=== PATIENT | male | born 1995 | race Caucasian/White ===

== ENCOUNTER 2021-02-26 11:06 | Emergency (ER) | payer SELFPAY ==
[2021-02-26 11:10] VITALS: BP 140/88; PULSE 115; RESP 15; TEMP 37.2; O2SAT 100; BMI 24.3
[2021-02-26 11:11] VITALS: PULSE 114; RESP 23; O2SAT 100
--- NOTE | 2021-02-26 11:17 | PC.NURSE ---
Patient prior to event had not eaten any food or drank any water. 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 Had several episodes of light headedness prior to event, employer walked patient to vehicle where episode of rigidity and shaking with unresponsiveness. By the time EMS arrived patient appeared back to baseline.
--- NOTE | 2021-02-26 11:29 | ED.SEIZURE ---
HPI - Seizure General Chief Complaint: Seizure Stated Complaint: seizure Time Seen by Provider: 02/26/21 11:16 Source: patient Mode of arrival: EMS Limitations: no limitations History of Present Illness HPI Narrative: Patient brought in by ambulance. Complained of 4 minute witnessed generalized tonic-clonic seizure. EMS blood sugar 71. Patient was working with his boss. He states his eyes were fluttering and had dizziness. No chest pain. No palpitations. Denies any drug use. No history of daily alcohol use/abuse. Patient states that he usually does not have very good nutritional intake. A very little yesterday. 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 No breakfast. Had 2 large in energy drinks, 1 was 24 oz the other 1 was 20 oz. patient states he does drink daily every morning energy drinks. His boss is on the phone while I am taking history. Patient had complaints as he described, walked towards the [employer] truck and set down a few times. Got into the truck and had a generalized symmetric tonic clonic seizure with foaming at the mouth. Duration 4 minutes. Patient awoke and immediately recognized his boss and was oriented very quickly. No injury. No recent illness fever chills cough cold congestion. No family history of seizures. No history of brain tumors. Is on no prescribed medications. No benzodiazepines were given. Patient is at baseline at this time Related Data Previous Rx's Medication Instructions Recorded amoxicillin 400 mg/5 mL oral 10 ml PO BID #200 ml 09/07/17 suspension Allergies Allergy/AdvReac Type Severity Reaction Status Date / Time bee venom protein (honey bee) Allergy Unknown Unverified 10/12/17 11:50 [BEE VENOM PROTEIN (HONEY BEE)] Review of Systems Review of Systems Narrative: GENERAL: Denies chills, fatigue, malaise, fever, sweats. HEENT: Denies sinus pain, ear pain, sore throat RESPIRATORY: Denies dyspnea, cough CARDIOVASCULAR: Denies chest pain, palpitations GASTROINTESTINAL: Denies nausea, vomiting, abdominal pain : Denies dysuria, frequency, hematuria MUSCULOSKELETAL: denies muscle or bony pain SKIN: Denies rash, skin lesions NEUROLOGIC: Denies weakness, numbness, complains dizziness/seizure ROS Unobtainable: All systems reviewed & are unremarkable except as noted in HPI and below Patient History Social History Smoking Status: Current every day smoker Smoking Status: Current every day smoker alcohol intake frequency: a few times a week Substance Use Type: does not use Exam Narrative Exam Narrative: GENERAL: in no distress, not toxic not dyspneic HEAD: Normocephalic. EYES: Pupils equal round No scleral icterus. No injection no discharge ENT: Mucous membranes moist. NECK: Trachea midline. CARDIOVASCULAR: Regular rate and rhythm without murmurs RESPIRATORY: Clear to auscultation. Breath sounds equal bilaterally. No wheezes, rales, or rhonchi. GASTROINTESTINAL: Abdomen soft, non-tender EXTREMITIES: No gross deformities. BACK: No flank tenderness. NEURO: AOx4. Clear speech no facial droop light touch intact to bilateral face hands and legs. Strong equal informatics spec. SKIN: Warm and dry PSYCH: Not anxious, is cooperative Initial Vital Signs Initial Vital Signs: Vital Signs Temperature 98.9 F 02/26/21 11:10 Pulse Rate 115 H 02/26/21 11:10 Respiratory Rate 15 02/26/21 11:10 Blood Pressure 140/88 02/26/21 11:10 Pulse Oximetry 100 02/26/21 11:10 Course Course Course Narrative: No new issues during course of stay. No seizure Orders Ordered: ED Orders 02/26/21 11:29 Comprehensive Metabolic Panel Stat Ethanol (ETOH) Stat 02/26/21 11:30 Complete Blood Count AUTO DIFF Stat Magnesium Stat EKG-12 Lead Stat 02/26/21 11:39 CT head/brain wo con Stat 02/26/21 11:47 Urinalysis Screen (Dip Only) Stat Urine Drug Screen, Rapid Stat Reevaluation(s) Reevaluation #1: Remains awake alert oriented x4. No seizures during course of stay. Time: 12:29 Reevaluation #2: Reviewed results with patient, understands no driving or operating machinery until cleared by provider/neurologist. Vital Signs Vital signs: Vital Signs - 8 hr 02/26/21 11:10 02/26/21 11:11 02/26/21 11:30 Temperature 98.9 F Pulse Rate 115 H 114 H 108 H Respiratory Rate 15 23 Blood Pressure 140/88 124/58 L Pulse Oximetry 100 100 99 02/26/21 12:08 02/26/21 12:31 Temperature Pulse Rate 90 95 H Respiratory Rate 17 18 Blood Pressure 127/73 142/83 H Pulse Oximetry 100 100 MDM - Seizure Differential Diagnosis Differential diagnosis: Likely febrile convulsion, generalized seizure, new onset seizure and epileptic seizure Lab Data Result diagrams: 02/26/21 12:21 02/26/21 12:21 Labs: Lab Results 02/26/21 02/26/21 02/26/21 Range/Units 11:47 11:47 12:21 WBC (4.5-11.0) X10^3/uL RBC (4.5-5.9) X10^6/uL Hgb (13.5-17.5) g/dL Hct (41-53) % MCV (80-100) fL MCH (26-34) PG MCHC (30-36) % RDW (11.6-14.8) % Plt Count (150-400) X10^3/uL Neut % (Auto) (50-75) % Lymph % (Auto) (25-40) % [place] % (Auto) (3-14) % Eos % (Auto) (2-4) % Baso % (Auto) (0-2) % Neut # (Auto) (9355-5013) /uL Lymph # (Auto) (5636-5755) /uL [place] # (Auto) (0-900) /uL Eos # (Auto) (0-450) /uL Baso # (Auto) (0-100) /uL Sodium 135 L (137-145) mmol/L Potassium 3.3 L (3.4-5.1) mmol/L Chloride 104 (98-107) mmol/L Carbon Dioxide 23 (22-32) mmol/L BUN 6 L (9-20) mg/dL Creatinine 0.90 (0.66-1.25) mg/dL Estimated GFR > 60.0 (>60) mL/min BUN/Creatinine Ratio 6.7 (6-22) Glucose 82 (70-100) mg/dL Calcium 8.9 (8.4-10.2) mg/dL Magnesium (1.6-2.3) mg/dL Total Bilirubin 0.5 (0.2-1.3) mg/dL AST 34 (17-59) IU/L ALT 23 (<50) IU/L Alkaline Phosphatase 74 (38-126) U/L Total Protein 7.2 (6.3-8.2) g/dL Albumin 4.2 (3.5-5.0) g/dL Globulin 3.0 (1.7-4.1) g/dL Albumin/Globulin Ratio 1.4 (1.0-2.8) Urine Color Yellow Urine Appearance Clear Urine pH 6.0 (4.5-8.0) Ur Specific [place] 1.020 (1.000-1.035) Urine Protein Trace H (Negative) Urine Glucose (UA) Negative (Negative) g/dL Urine Ketones Negative (NEGATIVE) Urine Occult Blood Negative (Negative) Urine Nitrate Negative (Negative) Urine Bilirubin Negative (NEGATIVE) Urine Urobilinogen 0.2 (0.2) E.U./dL Ur Leukocyte Esterase Negative (NEGATIVE) U Opiates 300ng/mL cut Negative (Negative) Ur Oxycodone Screen Negative (Negative) Urine Methadone Screen Negative (Negative) Ur Barbiturates Screen Negative (Negative) U Tricyclic Antidepress Negative (Negative) Ur Phencyclidine Scrn Negative (Negative) Ur Amphetamines Screen Negative (Negative) U Methamphetamines Scrn Negative (Negative) Ur MDMA Scrn (Ecstasy) Negative (Negative) U Benzodiazepines Scrn Negative (Negative) Urine Cocaine Screen Negative (Negative) U Marijuana (THC) Screen Negative (Negative) Ethyl Alcohol < 10 ( - 10) mg/dL 02/26/21 02/26/21 Range/Units 12:21 12:21 WBC 9.2 (4.5-11.0) X10^3/uL RBC 4.87 (4.5-5.9) X10^6/uL Hgb 15.3 (13.5-17.5) g/dL Hct 45.2 (41-53) % MCV 92.8 (80-100) fL MCH 31.5 (26-34) PG MCHC 34.0 (30-36) % RDW 13.5 (11.6-14.8) % Plt Count 196 (150-400) X10^3/uL Neut % (Auto) 80.9 H (50-75) % Lymph % (Auto) 11.0 L (25-40) % [place] % (Auto) 7.6 (3-14) % Eos % (Auto) 0.2 L (2-4) % Baso % (Auto) 0.3 (0-2) % Neut # (Auto) 7500 H (2227-5389) /uL Lymph # (Auto) 1000 L (0048-6383) /uL [place] # (Auto) 700 (0-900) /uL Eos # (Auto) 0 (0-450) /uL Baso # (Auto) 0 (0-100) /uL Sodium (137-145) mmol/L Potassium (3.4-5.1) mmol/L Chloride (98-107) mmol/L Carbon Dioxide (22-32) mmol/L BUN (9-20) mg/dL Creatinine (0.66-1.25) mg/dL Estimated GFR (>60) mL/min BUN/Creatinine Ratio (6-22) Glucose (70-100) mg/dL Calcium (8.4-10.2) mg/dL Magnesium 2.2 (1.6-2.3) mg/dL Total Bilirubin (0.2-1.3) mg/dL AST (17-59) IU/L ALT (<50) IU/L Alkaline Phosphatase (38-126) U/L Total Protein (6.3-8.2) g/dL Albumin (3.5-5.0) g/dL Globulin (1.7-4.1) g/dL Albumin/Globulin Ratio (1.0-2.8) Urine Color Urine Appearance Urine pH (4.5-8.0) Ur Specific [place] (1.000-1.035) Urine Protein (Negative) Urine Glucose (UA) (Negative) g/dL Urine Ketones (NEGATIVE) Urine Occult Blood (Negative) Urine Nitrate (Negative) Urine Bilirubin (NEGATIVE) Urine Urobilinogen (0.2) E.U./dL Ur Leukocyte Esterase (NEGATIVE) U Opiates 300ng/mL cut (Negative) Ur Oxycodone Screen (Negative) Urine Methadone Screen (Negative) Ur Barbiturates Screen (Negative) U Tricyclic Antidepress (Negative) Ur Phencyclidine Scrn (Negative) Ur Amphetamines Screen (Negative) U Methamphetamines Scrn (Negative) Ur MDMA Scrn (Ecstasy) (Negative) U Benzodiazepines Scrn (Negative) Urine Cocaine Screen (Negative) U Marijuana (THC) Screen (Negative) Ethyl Alcohol ( - 10) mg/dL Point of Care Testing Glucose POC 71 Urine Dip Bedside Urine Glucose Negative Bedside Urine Bilirubin - Negative Bedside Urine Ketone - Negative Urine Specific [place] 1.025 Bedside Urine Occult Blood - Negative Bedside Urine pH 6 Bedside Urine Protein - Negative Bedside Urine Urobilinogen - Negative Bedside Urine Nitrite - Negative Bedside Urine Leukocytes - Negative Esterase Imaging Data CT scan - head: Radiologist's Impression: [address] [id number] Scan ReportSigned Patient: Dimitri ParekhMR#: [id number]: 1995Acct:[id number]/Sex: 25 / MDate of Service: 02/26/21Loc: EDAccession Number: [id number] Procedure: CT head/brain wo con Ordering Provider: Carlton Edwards MD PROCEDURE: CT HEAD/BRAIN WO CON INDICATIONS: Seizure TECHNIQUE: Noncontrast 4.5 mm thick angled axial sections acquired from the foramen magnum to the vertex, with coronal and sagittal reformats. For radiation dose reduction, the following was used: automated exposure control, adjustment of mA and/or kV according to patient size. COMPARISON: None. FINDINGS: Image quality: Excellent. CSF spaces: Basal cisterns are patent. No extra-axial fluid collections. Ventricles are normal in size and shape. Brain: No midline shift. No intracranial masses or hemorrhage. Smith-white matter interface is normal. Skull and face: Calvarium and visualized facial bones are intact, without suspicious lesions. Sinuses: Visualized sinuses and mastoids are clear. IMPRESSION: No CT evidence of acute intracranial pathology. Dictated by: Damien Vieyra M.D. on 02/26/2021 at 11:59 Approved by: Damien Vieyra M.D. on 02/26/2021 at 12:00 ECG Data Interpretation: Sinus tachycardia, rate 111, no ST elevation, otherwise normal EKG MDM Narrative Medical decision making narrative: Appropriate for discharge home and follow-up with primary care for re-evaluation. Also needs clearance by provider or neurologist before driving or operating machinery. Patient understands at least 3 months seizure-free. Return precautions reviewed with him. Appropriate no seizure medications at this time. Needs neurology follow-up. Giving patient referral line to detain primary care to get referral to Neurology. We do not have Neurology on-call. Discharge Plan Departure Patient Disposition: Home Clinical Impression: New onset seizure Instructions: DI for Seizure Disorder -- Adult Activity Restrictions/Additional Instructions: No driving or operating machinery until seen by provider and cleared by neurologist for evaluation of today's seizure event. This is usually minimum of 3 months but need to be seen by neurologist. No energy drinks would be advisable. Return if worse if any questions or concerns. Call provided referral line to teen family doctor and referral to Neurology Prescriptions: No Action amoxicillin 400 MG/5 ML suspension for reconstitution 10 ml PO BID Qty: 200 RF: 0 Referrals: [facility] [Outside]
[2021-02-26 11:30] VITALS: BP 124/58; PULSE 108; O2SAT 99
--- NOTE | 2021-02-26 11:39 | DI.CT.S_ITS ---
PROCEDURE: CT HEAD/BRAIN WO CON INDICATIONS: Seizure TECHNIQUE: Noncontrast 4.5 mm thick angled axial sections acquired from the foramen magnum to the vertex, with coronal and sagittal reformats. For radiation dose reduction, the following was used: automated exposure control, adjustment of mA and/or kV according to patient size. COMPARISON: None. FINDINGS: Image quality: Excellent. CSF spaces: Basal cisterns are patent. No extra-axial fluid collections. Ventricles are normal in size and shape. Brain: No midline shift. No intracranial masses or hemorrhage. Smith-white matter interface is normal. Skull and face: Calvarium and visualized facial bones are intact, without suspicious lesions. Sinuses: Visualized sinuses and mastoids are clear. IMPRESSION: No CT evidence of acute intracranial pathology. Dictated by: Damien Vieyra M.D. on 02/26/2021 at 11:59 Approved by: Damien Vieyra M.D. on 02/26/2021 at 12:00
[2021-02-26 11:58] LABS: Appearance Urine UA CLEAR; Bilirubin Urine UA NEGATIVE (NEGATIVE); Color Urine UA YELLOW; Glucose Urine UA NEGATIVE (Negative); Ketones Urine UA NEGATIVE (NEGATIVE); Leukocyte Esterase Urine UA NEGATIVE (NEGATIVE); Nitrite Urine UA NEGATIVE (Negative); Occult Blood Urine UA NEGATIVE (Negative); Protein Urine UA TRACE (Negative); Urobilinogen Urine UA 0.2 E.U./dL (0.2)
[2021-02-26 12:04] LABS: UR Morphine/Opiate cutoff 300 Negative (Negative); Ur Creatinine Normal (Normal); Ur Specific Gravity Normal (Normal); Urine Amphetamines Negative (Negative); Urine Barbiturates Negative (Negative); Urine Benzodiazepines Negative (Negative); Urine Cocaine Negative (Negative); Urine MDMA Negative (Negative); Urine Methadone Negative (Negative); Urine Methamphetamines Negative (Negative); Urine Oxycodone Negative (Negative); Urine Phencyclidine Negative (Negative); Urine Tetrahydrocannabinol Negative (Negative); Urine Tricyclic Antidepressant Negative (Negative); Urine pH Normal (Normal)
[2021-02-26 12:08] VITALS: BP 127/73; PULSE 90; RESP 17; O2SAT 100
[2021-02-26 12:29] LABS: Add Manual Diff / Slide Review NO; Basophils Absolute Auto 0 /uL (0-100); Basophils Percent Auto 0.3 % (0-2); Eosinophils Absolute Auto 0 /uL (0-450); Eosinophils Percent Auto 0.2 % (2-4); Hematocrit 45.2 % (41-53); Hemoglobin 15.3 g/dL (13.5-17.5); Lymphocytes Absolute Auto 1000 /uL (1100-4500); Mean Corpuscular Hemoglobin 31.5 PG (26-34); Mean Corpuscular Volume 92.8 fL (80-100); Monocytes Absolute Auto 700 /uL (0-900); Monocytes Percent Auto 7.6 % (3-14); Neutrophils Absolute Auto 7500 /uL (1500-7000); Neutrophils Percent Auto 80.9 % (50-75); Platelet Count 196 X10^3/uL (150-400); Red Blood Cell Count 4.87 X10^6/uL (4.5-5.9); Red Cell Distribution Width 13.5 % (11.6-14.8); White Blood Cell Count 9.2 X10^3/uL (4.5-11.0)
[2021-02-26 12:31] VITALS: BP 142/83; PULSE 95; RESP 18; O2SAT 100
[2021-02-26 12:41] LABS: Alanine Aminotransferase 23 IU/L (<50); Albumin 4.2 g/dL (3.5-5.0); Albumin Globulin Ratio 1.4 (1.0-2.8); Alkaline Phosphatase 74 U/L (38-126); Aspartate Aminotransferase 34 IU/L (17-59); BUN Creatinine Ratio 6.7 (6-22); Bilirubin Total 0.5 mg/dL (0.2-1.3); Blood Urea Nitrogen 6 mg/dL (9-20); Calcium 8.9 mg/dL (8.4-10.2); Carbon Dioxide 23 mmol/L (22-32); Chloride 104 mmol/L (98-107); Estimated Glomerular Filt Rate > 60.0 mL/min (>60); Ethanol (ETOH) < 10 mg/dL; Glucose 82 mg/dL (70-100); HEMOLYSIS < 15 (0-50); Potassium 3.3 mmol/L (3.4-5.1); Sodium 135 mmol/L (137-145); Total Protein 7.2 g/dL (6.3-8.2)
[2021-02-26 13:07] LABS: Magnesium 2.2 mg/dL (1.6-2.3)
[2021-02-26 13:19] VITALS: BP 125/69; PULSE 92; O2SAT 100
== END 2021-02-26 13:20 | disposition home or self-care (01) ==
PROVIDERS: Emergency Provider Emergency Medicine
DX: R56.9 Unspecified convulsions (principal)
CPT/HCPCS: 70450; 80053; 80305; 80320; 81003; 82962; 83735; 85025; 93005; 93010; 99284

== ENCOUNTER 2022-04-26 15:06 | Emergency (ER) | payer SELFPAY ==
[2022-04-26 15:16] VITALS: BP 168/89; PULSE 85; RESP 16; TEMP 36.9; O2SAT 99; BMI 24.3
--- NOTE | 2022-04-26 15:33 | ED_ITS ---
HPI - Fall General Chief Complaint: Trauma Stated Complaint: Fell ~ 25 ft Time Seen by Provider: 04/26/22 15:23 Source: patient Mode of arrival: Ambulatory Limitations: no limitations History of Present Illness HPI Narrative: This is a 26-year-old healthy male who states he had approximately 25 ft fall on TuesdayApril 24. Patient was in a hotel or [place] he was hanging over the railing and intoxicated by his arms and hanging down when he decided to let go. Patient states he landed on his feet but in a inman which sort of cushion his landing he has a lot of abrasions on his feet and extremities but denies any lacerations. Patient states he did not hit his head he denies headache neck or back pain, denies loss of consciousness. The event was witnessed by his girlfriend who is at bedside and states that he was able to stand up and walk back immediately afterwards. He is had some persistent low back pain particularly on the sides but very mildly in the middle in the lumbar region. He denies any numbness, tingling or weakness of his extremities no issues with ambulation, no loss of bowel or bladder control. No other GI or urinary symptoms. Patient states he sneezed the other day which was quite painful, he states he is most uncomfortable 1st thing in the morning and as the day goes by he moves more things feel better. Taken ibuprofen but nothing stronger. He does deny any chest pain or shortness of breath he flew back from [place] where this occurred without any issue. He denies medical issues. Denies surgeries. Denies any drug allergies. He does smoke, does drink alcohol, denies illicit. Patient is unsure of his tetanus status he is open to it being updated. Related Data Previous Rx's Medication Instructions Recorded amoxicillin 400 mg/5 mL oral 10 ml PO BID #200 mL 09/07/17 suspension oxycodone 5 mg tablet 5 mg PO Q6H PRN pain #10 tabs 04/26/22 Allergies Allergy/AdvReac Type Severity Reaction Status Date / Time bee venom protein (honey bee) Allergy Unknown Unverified 10/12/17 11:50 [BEE VENOM PROTEIN (HONEY BEE)] Review of Systems Review of Systems ROS Unobtainable: All systems reviewed & are unremarkable except as noted in HPI and below Patient History Social History Smoking Status: Current every day smoker Smoking Status: Current every day smoker alcohol intake frequency: a few times a week Substance Use Type: does not use Exam Initial Vital Signs Initial Vital Signs: Vital Signs Temperature 98.4 F 04/26/22 15:16 Pulse Rate 85 04/26/22 15:16 Respiratory Rate 16 04/26/22 15:16 Blood Pressure 168/89 H 04/26/22 15:16 Pulse Oximetry 99 04/26/22 15:16 Oxygen Delivery Method 04/26/22 15:16 Scores GCS Olena coma scale eye opening: Spontaneous Olena coma scale verbal response: Orientated Moca coma scale motor response: Obey commands [place] coma scale total score: 15 Course Orders Ordered: ED Orders 04/26/22 15:43 CT lumbar spine wo con Stat Discontinued Medications Diphtheria/Tetanus/Acell Pertussis (Tet,Diph,Pertuss(Acell),Vac/Pf 0.5 Ml Syringe) 0.5 ml IM .ONCE ONE Stop: 04/26/22 15:47 Last Admin: 04/26/22 16:03 Dose: 0.5 ml Documented By: TRINI Vital Signs Vital signs: Vital Signs - 8 hr 04/26/22 15:16 04/26/22 15:37 04/26/22 16:44 Temperature 98.4 F Pulse Rate 85 85 Respiratory Rate 16 14 Blood Pressure 168/89 H 128/78 Pulse Oximetry 99 100 Oxygen Delivery Method Room Air Room Air MDM - Fall Imaging Data Lspine CT: Radiologist's Impression: Allergy/Adv: Neuromuscular Blockers, Steroidal, NSAIDS (Non-Steroidal Anti- Inflamma, latex, aspirin, Sulfa (Sulfonamide Antibiotics) (More??) Close Chest X-Ray (Signed) Jerome Nair - 04/26/22 Telemetry Strips 11/19/21 Abdomen/Pelvis CT (Signed) Damien Vieyra - 11/11/21 Abdomen/Pelvis CT (Signed) Kassidy Forbes - 10/29/21 Abdomen/Pelvis CT (Signed) Abran Higgins - 05/14/21 Lumbar Spine X-Ray (Signed) Greg Chapman - 04/22/21 Lumbar Spine MRI (Signed) Jerome Nair - 03/03/21 Pelvis Ultrasound (Signed) Tony Castañeda - 06/29/19 Chest/Abdomen/Pelvis CT (Signed) Sakina Pike - 06/25/[address] (Signed) Je,Gauri - 06/25/19 Forearm X-Ray (Signed) Nirmala Castañedadiah - 01/03/19 Abdomen/Pelvis CT (Signed) Sakina Pike - 01/27/18 Launch?[address] [address] XRay Report Signed Patient: Lashonda Ontiveros MR#: [id number] : 07/19/1975 Acct:[id number] Age/Sex: 46 / F Date of Service: 04/26/22 Loc: ED Accession Number: [id number] ?? Procedure: XR chest 2V Ordering Provider: Celia Rivera D.O. PROCEDURE:? XR CHEST 2V ? INDICATIONS:? shortness of breath ? TECHNIQUE:? 2 views of the chest were acquired.? ? COMPARISON:? None. ? FINDINGS:? ? Surgical changes and devices:? None.? ? Lungs and pleura:? Lungs are clear.? No pleural effusions or pneumothorax.? ? Mediastinum:? Mediastinal contours are normal.? Heart size is normal.? ? Bones and chest wall:? No suspicious bony abnormalities.? Soft tissues appear unremarkable.? IMPRESSION:? ? Unremarkable chest plain films. ? No infiltrates. ? ? Dictated by: Jerome Nair M.D. on 04/26/2022 at 15:51 ? ? Approved by: Jerome Nair M.D. on 04/26/2022 at 15:51?? MDM Narrative Medical decision making narrative: This is a 26-year-old male who had fall from approximately 25 ft landing on his feet, he does not have any heel or ankle pain he has been ambulating without issue he does have multiple abrasions they do not appear infected. Patient's main complaint is lower back pain particularly in the sides in the muscle sees feels like it spasms quite a bit patient injury occurred approximately 2 days ago, no head injury at that time event was witnessed. Patient is not on thinners so does not feel appropriate for CT of head and neck or torso as patient has flown back, has normal exam with clear lungs bilaterally suspicion for pneumothorax or rib fracture is low. Plan for CT L-spine as patient does have some very mild tenderness over upper lumbar region. Patient CTs positive for mild compression deformity at T12-L1, reviewed findings with patient, follow-up with orthopedic surgery no acute adjustment at this time pain management, no high impact sports or activities and return precautions reviewed. Discharge Plan Departure Patient Disposition: Home Clinical Impression: Closed wedge compression fracture of T12 vertebra, Closed compression fracture of body of L1 vertebra Instructions: DI for Vertebral Fracture Activity Restrictions/Additional Instructions: Follow-up with orthopedic surgery if symptoms continue to persist over several weeks or even months. Referral is included below if needed. You do have a fracture or a compression fracture in your spine at T12 and L1. No high impact activities until your back is pain-free. Fractures typically take 8-12 weeks to fully heal. You can take Tylenol up to a 1000 mg every 6 hours and/or Advil in addition. If inadequate for your pain you can add a narcotic pain medication 1-2 tablets every 6 hours as needed. This medication can make you sleepy do not drive, perform hazardous activities or make any major decisions while taking it. This medication will make you constipated please take a stool softener once to twice daily until stools are soft and regular. Prescription sent to [facility]. Please return for rapidly worsening pain, new numbness, weakness, loss of sensation in your extremities, loss of sensation in the groin or perineum, loss of bowel or bladder control, inability to lift or move her extremities or other new or concerning changes. Prescriptions: New oxycodone 5 mg tablet 5 mg PO Q6H PRN (Reason: pain) Qty: 10 0RF No Action amoxicillin 400 MG/5 ML suspension for reconstitution 10 ml PO BID Qty: 200 0RF Referrals: Sheela Hussein MD [Physician] - Miscellaneous,MD Nico [Primary Care Provider] - Stand Alone Forms: Work Release Note Visit Report Forms: Patient Portal/API
--- NOTE | 2022-04-26 15:43 | DI.CT.S_ITS ---
PROCEDURE: CT LUMBAR SPINE WO CON INDICATIONS: fall onto feet from apr 25 feet, low back pain, ambulating o TECHNIQUE: Noncontrast 3 mm thick sections acquired from the T12 level to the sacrum. Sagittal and coronal reformats were constructed. For radiation dose reduction, the following was used: automated exposure control. COMPARISON: None. FINDINGS: These images demonstrate very slight anterior wedging of the L1 and T12 vertebral bodies with increased density/attenuation of the superior thirds of the vertebral bodies and linear horizontally oriented areas of suspected trabecular impaction consistent with superior endplate compression fractures. There is possible mild cortical step-off of the anterior cortices at both levels. No spinal canal or neural foraminal stenosis. No significant soft tissue abnormality. IMPRESSION: Mild anterior wedging at T12 and L1 with appearance suggestive of compacted superior trabeculae consistent with mild compression deformities. Dictated by: Alexis Bowman M.D. on 04/26/2022 at 16:10 Approved by: Alexis Bowman M.D. on 04/26/2022 at 16:16
[2022-04-26] MEDS: TET,DIPH,PERTUSS(ACELL),VAC/PF 0.5 ML SYRINGE IM (16:03)
[2022-04-26 16:44] VITALS: BP 128/78; PULSE 85; RESP 14; O2SAT 100
== END 2022-04-26 16:48 | disposition home or self-care (01) ==
PROVIDERS: Emergency Provider Emergency Medicine
DX: S22.080A Wedge compression fracture of T11-T12 vertebra, initial encounter for closed fracture (principal); S32.019A Unspecified fracture of first lumbar vertebra, initial encounter for closed fracture; S90.812A Abrasion, left foot, initial encounter; S90.811A Abrasion, right foot, initial encounter; Z23 Encounter for immunization; Y30.XXXA Falling, jumping or pushed from a high place, undetermined intent, initial encounter; Y92.59 Other trade areas as the place of occurrence of the external cause
CPT/HCPCS: 72131; 90471; 99284; 90715